=== PATIENT | male | born 1995 | race African-American/Black ===

== ENCOUNTER 2018-06-29 15:19 | Emergency (ER) | payer OTHER ==
[~2018-06-29] VITALS: Wt 74.0 kg
[2018-06-29 15:24] VITALS: BP 150/88; PULSE 105; RESP 18
[2018-06-29] MEDS ORDERED: FLUT9.9S NASAL (17:26)
[2018-06-29] MEDS ORDERED: IBUP-1542 PO (17:26)
[2018-06-29] MEDS ORDERED: LORA10CA PO (17:26)
[2018-06-29] MEDS ORDERED: BENZ200C68 PO (17:26)
[2018-06-29] MEDS ORDERED: FEXO180T13 PO (18:02)
[2018-06-29] MEDS ORDERED: NAPR-985 PO (18:02)
[2018-06-29] MEDS ORDERED: D-ME473S2 PO (18:24)
[2018-06-29] MEDS ORDERED: BEN25 PO (18:47)
--- NOTE | 2018-06-30 02:21 | ERD ---
ER Documentation Chief Complaint Chief Complaint COUGH AND CONGESTION AND INTERMITTENT FEVERS FOR PAST FEW MONTHS. HPI 23-year-old male presenting to the emergency department with complaints of intermittent nasal congestion and cough for the past 8 months. Patient states his symptoms worsened yesterday prompting him to come in. Symptoms are overall worse at night. Patient has had runny nose and itchy throat as well. Additionally, the patient reports intermittent back pain for the past 8 months likely secondary to his scoliosis.He denies any fevers or other symptoms at this time. ROS All systems reviewed and are negative except as per history of present illness. Medications Home Meds Active Scripts Diphenhydramine Hcl* (Benadryl*) 25 Mg Cap, 25 MG PO Q6, #30 CAP Prov:JESUS FELIX MD 06/29/18 Dextromethorphan Hb-Promethazine Hcl* (Promethazine DM* Syrup) 473 Ml Syrup, 5 ML PO Q6 PRN for COUGH, #100 ML Prov:JOHN LANIER PA-C 06/29/18 Fexofenadine Hcl* (Fexofenadine Hcl*) 180 Mg Tablet, 180 MG PO DAILY, #30 TAB Prov:JOHN LANIER PA-C 06/29/18 Naproxen* (Naprosyn*) 500 Mg Tablet, 500 MG PO BID PRN for PAIN AND/OR INFLAMMATION, #30 TAB Prov:JOHN LANIER PA-C 06/29/18 Benzonatate* (Benzonatate*) 200 Mg Capsule, 200 MG PO TID PRN for COUGH, #20 CAP Prov:JOHN LANIER PA-C 06/29/18 Loratadine* (Claritin*) 10 Mg Capsule, 10 MG PO DAILY, #30 CAP Prov:JOHN LANIER PA-C 06/29/18 Fluticasone Propionate (Flonase Allergy Relief) 9.9 Ml [place].susp, 1 SPRAY NASAL BID, #1 BOTTLE TO EACH NOSTRIL Prov:JOHN LANIER PA-C 06/29/18 Ibuprofen* (Motrin*) 600 Mg Tab, 600 MG PO Q6, #30 TAB Prov:JOHN LANIER PA-C 06/29/18 Allergies Allergies: Coded Allergies: No Known Drug Allergies (Verified Allergy, Unknown, 06/29/18) PMhx/Soc History of Surgery: Yes (JAW) Hx Miscellaneous Medical Probl: Yes (SCOLIOSIS) FmHx Family History: No diabetes Physical Exam Vitals Vital Signs Date Temp Pulse Resp B/P (MAP) Pulse Ox O2 O2 Flow FiO2 Time Delivery Rate 06/29/18 97.8 105 18 150/88 98 15:24 (108) Physical Exam Const: No acute distress Head: Atraumatic Eyes: Normal Conjunctiva ENT: Normal External Ears, Nose and Mouth. Neck: Full range of motion. No meningismus. Resp: Clear to auscultation bilaterally Cardio: Regular rate and rhythm, no murmurs Skin: No petechiae or rashes Back: No midline or flank tenderness Ext: No cyanosis, or edema Neur: Awake and alert Psych: Normal Mood and Affect Results 24 hrs [place] [id number] Radiology Main Line: [phone] DIAGNOSTIC IMAGING REPORT Patient: EDISON SLADE : 1995 Age: 23 Sex: M MR #: [id number] DOS: 06/29/18 0000 Ordering MD: JOHN LANIER PA-C Location: [facility] Room/Bed: PROCEDURE: XR Chest. CLINICAL INDICATION: Cough TECHNIQUE: Single portable view of the chest was obtained. COMPARISON: 06/29/2018 FINDINGS: Cardiac/vascular structures: Normal cardiomediastinal silhouette. Pulmonary: Lungs are clear. No pleural effusion. No evidence of pneumothorax. Osseous structures: Normal Soft tissues: Normal IMPRESSION: No acute cardiopulmonary disease. RPTAT:AAJJ Physician Jasper Date Time Electronically viewed and signed by Physician Jasper on 06/29/2018 18:09 MH/ CC: JOHN LANIER PA-C [id number] Procedures/MDM 23-year-old male presenting to the emergency department complaining of intermittent cough and back pain. Chest x-ray is negative for any acute abnormalities. Symptoms are likely secondary to allergic rhinitis and back pain secondary to scoliosis. Patient is stable and appropriate for further outpatient management with prescriptions. He was in agreement with the diagnosis, plan , need for follow-up, return precautions. Patient repeatedly requested prescription for promethazine with codeine for his allergy symptoms. No evidence of life-threatening pathology at time of discharge. Pt/family in agreement with discharge plan/diagnosis. Pt/family advised to return immediately with any new or worsening symptoms. Follow-up with primary care physician within the next 1-2 days. Patient's blood pressure was elevated (>120/80) but appears stable without evidence of hypertension emergency or urgency. The patient is to follow-up and pursue outpatient monitoring and therapy with their primary care physician within 1 week and return immediately if they have any new, worsening, or concerning symptoms. Disclaimer: Inadvertent spelling and grammatical errors are likely due to EHR/dictation software use and do not reflect on the overall quality of patient care. Also, please note that the electronic time recorded on this note does not necessarily reflect the actual time of the patient encounter. Departure Diagnosis: Primary Impression: Allergic rhinitis Additional Impression: Cough Condition: Fair Patient Instructions: Causes of Nasal Allergies Referrals: COMMUNITY CLINICS YOU HAVE RECEIVED A MEDICAL SCREENING EXAM AND THE RESULTS INDICATE THAT YOU DO NOT HAVE A CONDITION THAT REQUIRES URGENT TREATMENT IN THE EMERGENCY DEPARTMENT. FURTHER EVALUATION AND TREATMENT OF YOUR CONDITION CAN WAIT UNTIL YOU ARE SEEN IN YOUR DOCTORS OFFICE WITHIN THE NEXT 1-2 DAYS. IT IS YOUR RESPONSIBILITY TO MAKE AN APPOINTMENT FOR FOLOW-UP CARE. IF YOU HAVE A PRIMARY DOCTOR --you should call your primary doctor and schedule an appointment IF YOU DO NOT HAVE A PRIMARY DOCTOR YOU CAN CALL OUR PHYSICIAN REFERRAL HOTLINE AT IF YOU CAN NOT AFFORD TO SEE A PHYSICIAN YOU CAN CHOSE FROM THE FOLLOWING FORMERLY [facility] [address] [facility] [address] [facility] [address] [facility] [address] [facility] [address] [facility]. [facility] [address] Additional Instructions: Call your primary care doctor TOMORROW for an appointment during the next 1-2 days.See the doctor sooner or return here if your condition worsens before your appointment time. JOHN LANIER PA-C Jun 30, 2018 02:21
== END 2018-06-30 11:25 | disposition home or self-care (01) ==
LOC: FTE 15:19
DX: J30.9 Allergic rhinitis, unspecified (principal)
CPT/HCPCS: 71045; Z7502